=== PATIENT | female | born 1940 | race Caucasian/White ===

== ENCOUNTER 2020-09-21 07:56 | Outpatient (CLI) | payer OTHER, SELFPAY ==
[2020-09-24 13:31] LABS: Patient Race White; SARS-CoV-2 RNA Undetected (Undetected); SARS-CoV-2 Specimen Source Nasal
== END 2020-09-21 08:16 ==
PROVIDERS: PCP Emergency Medicine; Visit Provider Nurse Practitioner Family
DX: Z11.59 Encounter for screening for other viral diseases (principal)
CPT/HCPCS: U0003

== ENCOUNTER 2021-01-31 07:44 | Outpatient (REF) | payer OTHER, SELFPAY ==
[2021-01-31 15:59] LABS: HCT 41.8 % (36.0-46.0); HGB 13.5 g/dL (11.2-15.7); MCH 30.6 pg (27.0-33.0); MCHC 32.3 % (32.0-36.0); MCV 94.8 fL (80-95); MPV 9.9 fL (8.0-11.0); Platelet Count 303 10^3/uL (130-400); RBC 4.41 10^6/uL (3.93-5.22); RDW 12.1 % (11.7-14.6); RDW-SD 42.5 fL; WBC 5.84 10^3/uL (4.4-10.8)
[2021-01-31 16:27] LABS: ALT 29 U/L (14-59); AST 27 U/L (15-37); Albumin 3.8 g/dL (3.4-5.0); Alkaline Phosphatase 73 U/L (46-116); Anion Gap 9.5 mmol/L (3-11); BUN 18 mg/dL (7-18); Bilirubin, Total 0.3 mg/dL (0.2-1.0); CO2 28.5 mmol/L (21.0-32.0); CREATININE 0.8 mg/dL (0.55-1.02); Calcium 9.2 mg/dL (8.5-10.1); Calculated LDL 90 mg/dL (<100); Chloride 104 mmol/L (98-107); Cholesterol 168 mg/dL (<200); Glucose 98 mg/dL (74-106); HDL Cholesterol 59 mg/dL (40-60); Potassium 4.1 mmol/L (3.5-5.1); Sodium 142 mmol/L (136-145); Total Protein 6.9 g/dL (6.4-8.2); Triglyceride 96 mg/dL (<150)
== END 2021-01-31 07:45 | disposition home or self-care (01) ==
LOC: NCHCN 07:44
PROVIDERS: Visit Provider Physician Assistant
DX: E78.5 Hyperlipidemia, unspecified (principal)
CPT/HCPCS: 80053; 80061; 85027

== ENCOUNTER 2021-08-08 18:41 | Outpatient (REF) | payer OTHER, SELFPAY ==
[2021-08-08 19:57] LABS: TSH 1.76 uIU/mL (0.36-3.74)
== END 2021-08-08 18:42 | disposition home or self-care (01) ==
LOC: NCHCN 18:41
PROVIDERS: Referring Provider Physician Assistant; Visit Provider Physician Assistant
DX: R53.83 Other fatigue (principal)
CPT/HCPCS: 84439; 84443

== ENCOUNTER 2022-02-07 14:23 | Emergency (ER) | payer OTHER, SELFPAY ==
[2022-02-07 14:48] VITALS: BP 138/73; PULSE 63; RESP 18; TEMP 37.5; O2SAT 98
[2022-02-07 15:00] VITALS: PULSE 66; RESP 14; TEMP 37.5; O2SAT 99
--- NOTE | 2022-02-07 15:15 | DI.RAD_ITS ---
Exam(s) XR RIBS RT PA CHEST 3V EXAM: XR RIBS RT PA CHEST 3V CLINICAL HISTORY: fall, right rib pain laterally TECHNIQUE: 2D digital imaging was performed. PA chest and three views of right ribs COMPARISON: CR CHEST 2 VIEWS PA,LAT from 05/04/2009 CR CHEST 2 VIEWS PA,LAT from 11/21/2010 FINDINGS: MEDIASTINUM: Normal. HEART: Normal. PULMONARY VASCULATURE: Normal. LUNGS: Biapical scarring, right greater than left, otherwise clear. Mild fibrotic changes. Clear. PLEURAL SPACE: No pleural effusion or pneumothorax. BONE:Normal. RIGHT RIBS: Normal. OTHER FINDINGS:Surgical clips right upper quadrant. IMPRESSION: 1. No acute pulmonary findings. 2. Unremarkable right ribs. DATA REPOSITORY: RADIATION DOSE DELIVERED:
--- NOTE | 2022-02-07 15:15 | DI.RAD_ITS ---
Exam(s) XR ANKLE LT COMPLETE EXAM: XR ANKLE LT COMPLETE CLINICAL HISTORY: fall, ankle pain TECHNIQUE: 2D digital imaging was performed. Three views. COMPARISON: No exams were available for comparison FINDINGS: BONES: No acute fracture is present. No bony destructive lesion is seen. Prominent calcaneal enthesop hytes. Smoothly marginated bony densities adjacent to the medial malleolus. JOINTS:The ankle mortise is normally aligned. No joint space narrowing. SOFT TISSUE: Normal. IMPRESSION: No acute abnormality. DATA REPOSITORY: RADIATION DOSE DELIVERED:
--- NOTE | 2022-02-07 15:15 | DI.CT_ITS ---
Exam(s) CT HEAD WO EXAM: CT HEAD WO CLINICAL HISTORY: fall, right frontotemporal trauma. TECHNIQUE: Imaging Protocol: Axial computed tomography images with coronal and sagittal reformatted images were created and reviewed COMPARISON: No exams were available for comparison FINDINGS: Ventricles and Extra axial spaces: Normal in size and morphology for the patient's age. Hemorrhage: None. Cerebral parenchyma: Normal. Midline shift: None. Brainstem/Cerebellum: Normal. Calvarium: Benign appearing bony excrescence from the Arpit inner table of the skull in the left post erior parietal region. Visualized Paranasal sinuses/Mastoids: Clear. Soft Tissues: Mild swelling right frontal scalp. IMPRESSION: No acute intracranial process. Findings called to emergency department. RADIATION DOSE DELIVERED: 710.05mGy.cm Total DLP DATA REPOSITORY: All CT scans at this facility are submitted to the National Radiology Data Registry (NRDR) Dose Index Registry (DIR) with the [employer] ([employer]). RADIATION OPTIMIZATION: All CT scans at this facility use at least one of these dose optimization te chniques: automated exposure control; mA and/or kV adjustment per patient size (includes targeted exa ms where dose is matched to clinical indication); or iterative reconstruction.
--- NOTE | 2022-02-07 16:41 | W.ED.GENAD ---
Discharge Plan Disposition Patient Disposition: HOME Condition: Improving Discharge Details Clinical Impression: Contusion, Fall Primary Care Provider: Javon Vu ED Provider: Morgan [place] Home Meds and New Rx's Prescriptions: Continued citalopram [Celexa] 20 MG tablet 30 mg PO DAILY Qty: 135 4RF ibuprofen 800 MG tablet 800 mg PO TID PRNQty: 90 0RF pravastatin 40 MG tablet 20 mg PO DAILY Qty: 90 3RF gabapentin 100 mg capsule 100 mg PO QHS 0RF Label Comments: TAKE ONE CAPSULE BY MOUTH AT BEDTIME (INCREASED DROWSINESS WTIH CITALOPRAM) cholecalciferol (vitamin D3) [Vitamin D3] 25 mcg (1,000 unit) Tablet 1,000 unit PO DAILY 0RF folic acid 15 mg Tablet 10 mg PO DAILY 0RF Discharge Instructions Instructions: Contusion in Adults (ED) Additional Instructions: Continue with ibuprofen, acetaminophen ice and rest as needed. Please return to the emergency part he develop any change in behavior nausea vomiting weakness numbness or trouble breathing. Medical Decision Making 81-year-old female presents for mechanical fall tripped on a dog toy, left ankle pain right chest wall pain right frontotemporal scalp ecchymosis and mild hematoma, neurologically intact moving all extremities no anticoagulant or antiplatelet use, no cervical spine tenderness, chest wall discomfort with palpation without ecchymosis or evidence of flail chest. Likely chest wall contusion versus rib fracture versus unlikely pneumothorax, low suspicion for skull fracture or intracranial hemorrhage however given age and mechanism as well as frontotemporal ecchymosis will obtain CT head, ankle pain with full range of motion neurovascular exam intact warm well perfused. Likely ankle sprain low suspicion for dislocation or fracture. X-ray CT head, analgesia close reassessment likely home with follow-up Resting comfortably no acute distress. Imaging unremarkable. Patient feels comfortable going home. HPI General Date/Time Provider Initiated Documentation: 02/07/22 14:58. HPI Narrative: 81-year-old female presents after mechanical fall, tripped over a dog toy, fell onto her right side, hitting her right chest wall right side of her head and straining her left ankle. No loss of conscious. Denies blood thinner aspirin use. Behaving normally per family member at bedside. Denies trouble breathing however does have pain in her right side when moving. Related Data Home Medications Medication Instructions Recorded Confirmed citalopram 20 mg tablet (Celexa) 30 mg PO DAILY #135 tab-cap 10/06/14 02/07/22 ibuprofen 800 mg tablet 800 mg PO TID PRN #90 tab-cap 05/04/15 02/07/22 pravastatin 40 mg tablet 20 mg PO DAILY #90 tab-cap 05/02/16 02/07/22 cholecalciferol (vitamin D3) 25 1,000 unit PO DAILY 02/07/22 02/07/22 mcg (1,000 unit) tablet (Vitamin D3) folic acid 15 mg tablet 10 mg PO DAILY 02/07/22 02/07/22 gabapentin 100 mg capsule 100 mg PO QHS 02/07/22 02/07/22 Allergies Allergy/AdvReac Type Severity Reaction Status Date / Time polymyxin B Allergy Unknown Unverified 02/07/22 17:32 bacitracin AdvReac Unknown Unverified 02/07/22 17:32 General Stated Complaint: Trauma CHRISTIAN: 3 Review of Systems Narrative: Review of Systems Constitutional: negative Eyes: negative ENT: negative Cardiovascular: negative Respiratory: negative Gastrointestinal: negative : negative Musculoskeletal: Chest wall pain, ankle pain Skin: negative Neurologic: Head injury Psych: negative PFSH All Active Problems (Updated 02/07/22 @ 17:52 by Morgan Bay MD) Contusion (Acute) Fall (Acute) Encounter for screening for other viral diseases (Acute) Surgical History (Updated 09/04/18 @ 14:34 by [place]) Abdominal hysterectomy cervical dyspalsia Cholecystectomy (~2001) Colonoscopy - [facility] [place] 2006 Family History Mother Epilepsy Father Essential hypertension Heart disease Hyperlipidemia Myocardial infarction Sister Hyperlipidemia Brother Personal history of malignant neoplasm Grandmother No problems noted. Social History Smoking/Tobacco Use Status: Former Tobacco Use Smoking risk assessment performed?: Yes Alcohol Intake: current Alcohol Intake frequency: holidays/special occasions only Drug use: Never Do you feel safe at home: Yes Do you feel safe in your relationship?: Yes Exam Narrative Exam Narrative: Physical Examination General: alert, awake, cooperative, resting comfortably, no acute distress HEENT: normocephalic, contusion/ecchymosis to right frontotemporal scalp PERRL, EOM intact, conjunctiva normal; no nasal discharge; moist mucous membranes, oral and pharyngeal mucosa normal, tolerating secretions Neck: supple, trachea midline; full ROM Chest: normal to inspection, tender to palpation under right breast without crepitus or deformity, normal excursion, no ecchymosis Respiratory: normal respiratory effort, speaking in full sentences, clear to auscultation, no wheezing, rales or rhonchi Cardiac: regular rate, regular rhythm, S1S2 intact, no murmurs rubs or gallops GI: abdomen soft, non-tender, non-distended; no palpable mass or hepatosplenomegaly Skin: no lesions, rashes or trauma appreciated Neuro: AAOx3, normal speech, moving all extremities, 5-5 strength upper and lower extremities, cranial nerves intact, no evidence of ataxia Extremities: Moving all extremities, some tenderness to left ankle without crepitus or deformity, sensation intact warm well perfused limb Psych: Appropriate mood and affect Course Vital Signs Vital signs: Vital Signs Temperature 37.5 C 02/07/22 14:48 Pulse 63 02/07/22 14:48 Respiratory Rate 18 02/07/22 14:48 Blood Pressure 138/73 02/07/22 14:48 Pulse Oximetry 98 02/07/22 14:48 Temperature 37.5 C 02/07/22 15:00 Temperature Source Temporal Artery Scan 02/07/22 15:00 Pulse 66 02/07/22 15:00 Respiratory Rate 14 02/07/22 15:00 Respiratory Effort Non-Labored 02/07/22 15:07 Respiratory Depth Normal 02/07/22 15:07 Respiratory Pattern Normal 02/07/22 15:07 Blood Pressure 138/73 02/07/22 14:48 Blood Pressure Position Sitting 02/07/22 15:00 Pulse Oximetry 99 02/07/22 15:00 Oxygen Delivery Method Room Air 02/07/22 15:00 Oxygen Flow Rate 0 02/07/22 15:00 Pain Level 9 02/07/22 15:00 Comment 02/07/22 15:00
[2022-02-07] MEDS: Ketorolac 15 MG/ML VIAL IM (17:33)
[2022-02-07 18:07] VITALS: BP 132/70; PULSE 60; RESP 12; TEMP 37.5; O2SAT 99
--- NOTE | 2022-02-07 18:09 | NUR.NOTE ---
Patient was given an Incentive spirometer and education in its use. HARRY
== END 2022-02-07 18:04 | disposition home or self-care (01) ==
PROVIDERS: Emergency Provider Emergency Medicine; PCP Physician Assistant
DX: S20.211A Contusion of right front wall of thorax, initial encounter (principal); S00.03XA Contusion of scalp, initial encounter; M25.572 Pain in left ankle and joints of left foot; W01.0XXA Fall on same level from slipping, tripping and stumbling without subsequent striking against object, initial encounter
CPT/HCPCS: 96372; 99284; 70450; 71046; 71100; 73610; 99283; J1885

== ENCOUNTER → 2022-02-09 14:22 | Outpatient (CLI) | payer OTHER, SELFPAY ==
--- NOTE | 2022-02-09 | DI.RAD_ITS ---
Exam(s) XR HUMERUS RT XR SHOULDER RT COMPLETE 2+V EXAM: XR HUMERUS RT and XR shoulder RT complete two view CLINICAL HISTORY: RT UPPER ARM PAIN, H/O FALL, M79.621,?FX. TECHNIQUE: 2D digital imaging was performed of the right humerus. Seven images were obtained. Mult iple views were obtained. COMPARISON: CR XR RIBS RT PA CHEST 3V from 02/07/2022 FINDINGS: BONES: No acute fracture is present. No bony destructive lesion is seen. Degenerative changes are see n at the shoulder. The bones appear osteopenic. SOFT TISSUE: Normal. IMPRESSION: No acute fracture or dislocation. DATA REPOSITORY: RADIATION DOSE DELIVERED:
== END ==
PROVIDERS: PCP Physician Assistant; Visit Provider Physician Assistant Medical
DX: M79.621 Pain in right upper arm (principal); M25.511 Pain in right shoulder
CPT/HCPCS: 73030; 73060

== ENCOUNTER 2022-12-10 11:39 | Emergency (ER) | payer MEDICARE, SELFPAY ==
[2022-12-10 11:44] VITALS: BP 125/78; RESP 18; TEMP 36.7; O2SAT 96
--- NOTE | 2022-12-10 12:00 | DI.RAD_ITS ---
Exam(s) XR KNEE RT 3V AP,LAT,MALINI EXAM: XR KNEE RT 3V AP,LAT,MALINI CLINICAL HISTORY: pain, atraumatic, lateral. TECHNIQUE: 2D digital imaging was performed. COMPARISON: No exams were available for comparison FINDINGS: Four views: No evidence of acute fracture although there does appear to be a small joint effusion. There is significant degenerative narrowing of the medial compartment. Lateral compartment appears u nremarkable. There are posteriorly located calcified loose bodies. Possibly within Rock cyst. Anteriorly there is in element of quadriceps enthesopathy. IMPRESSION: No fractures. Degenerative changes. Loose bodies in the posterior joint. DATA REPOSITORY: RADIATION DOSE DELIVERED:
[2022-12-10] MEDS: Acetaminophen 325 MG TAB 650 MG PO (12:26)
--- NOTE | 2022-12-10 13:03 | DI.VRAD_ITS ---
PROCEDURE INFORMATION: Exam: XR Right Knee Exam date and time: 12/10/2022 12:38 PM Age: 82 years old Clinical indication: Difficulty in walking and limp and other: Pain, atraumatic, lateral TECHNIQUE: Imaging protocol: Radiologic exam of the Right knee. Views: 3 views. COMPARISON: No relevant prior studies available. FINDINGS: Bones/joints: No acute fracture or dislocation. Medial compartment osteophytosis with joint space narrowing. Small joint effusion. Soft tissues: Quadriceps enthesopathy. Suprapatellar swelling. Calcified densities over the posterior joint space may be within a Rock's cyst or loose bodies. IMPRESSION: 1. No acute findings. 2. Moderate medial compartment predominant osteoarthritis. Dictated and Authenticated by: Tomas Rojas MD. Ordering:PARVEZ Erwin MD
--- NOTE | 2022-12-10 13:23 | ED.GENADUL_ITS ---
Discharge Plan Disposition Patient Disposition: Home Condition: Stable Discharge Details Clinical Impression: Acute knee pain Primary Care Provider: Javon Vu ED Provider: Yaima Esposito Home Meds and New Rx's Prescriptions: Continued rosuvastatin 5 mg tablet 5 mg PO DAILY cholecalciferol (vitamin D3) [Vitamin D3] 25 mcg (1,000 unit) Tablet 1,000 unit PO DAILY escitalopram oxalate 10 mg tablet 1 tab PO DAILY Label Comments: TAKE ONE TABLET BY MOUTH EVERY DAY naproxen sodium [Aleve] 220 mg Tablet 220 mg PO Q12H PRN PRN Discharge Instructions Instructions: Knee Pain (ED) Additional Instructions: Please follow-up with orthopedics Take your medication ibuprofen and Tylenol Apply Voltaren gel Recommend cane and return with redness, swelling, fever, or should he have new or worsening complaints Referrals: Javon Vu [Primary Care Provider] - Arnaldo Walker MD [ [facility] STAFF PHYSICIAN] - Discharge Data Discharge Date/Time-TO BE ENTERED AT DEPARTURE: 12/10/22 14:39 Medical Decision Making This 82-year-old female presents with left knee pain ongoing for the past several weeks without any evidence of secondary infection X-ray shows evidence of arthritis per radiology interpretation my review Placed in a hinged knee brace, mild effusion suspected Will refer to orthopedics for further assessment and intervention Recommend cane use for home Will apply Voltaren gel Return precautions reviewed and patient expressed understanding, discharged home with steady antalgic gait Medical Records Medical records reviewed: Yes I reviewed the patient's medical records. HPI General Date/Time Provider Initiated Documentation: 12/10/22 12:12 . HPI Narrative: This 82-year-old female presents with right knee pain for the past week which became dramatically worse this week. She denies any injuries or strength or sensation change. States the pain is exacerbated with walking predominantly. Describes the pain as sharp. Denies fever or chills. Related Data Home Medications Medication Instructions Recorded Confirmed cholecalciferol (vitamin D3) 25 1,000 unit PO DAILY 02/07/22 12/10/22 mcg (1,000 unit) tablet (Vitamin D3) rosuvastatin 5 mg tablet 5 mg PO DAILY 04/24/22 12/10/22 escitalopram oxalate 10 mg tablet 1 tab PO DAILY 12/10/22 12/10/22 naproxen sodium 220 mg tablet 220 mg PO Q12H PRN PRN 12/10/22 12/10/22 (Aleve) Allergies Allergy/AdvReac Type Severity Reaction Status Date / Time polymyxin B Allergy Unknown Unverified 12/10/22 11:46 bacitracin AdvReac Unknown Unverified 12/10/22 11:46 General Stated Complaint: Orthopedic CHRISTIAN: 4 PFSH All Active Problems (Updated 12/10/22 @ 14:26 by SAMMY Motta) Acute knee pain (Acute) Sleep apnea (Acute 09/04/14) CPAP Encounter for screening for other viral diseases (Acute) Medical History (Updated 12/10/22 @ 14:26 by SAMMY Motta) Cystocele, midline Diverticulosis of colon without diverticulitis History of tobacco use Hyperlipidemia Polyp of colon TUBULAR ADENOMA Surgical History (Updated 04/24/22 @ 15:38 by Gavin Lowery RN) Abdominal hysterectomy cervical dyspalsia Cholecystectomy (~2001) [place] - [facility] [place] Status post abdominal hysterectomy Status post cholecystectomy Family History Mother Epilepsy Father Essential hypertension Heart disease Hyperlipidemia Myocardial infarction Sister Hyperlipidemia Brother Personal history of malignant neoplasm Grandmother No problems noted. Social History Smoking/Tobacco Use Status: Former Tobacco Use Smoking risk assessment performed?: Yes Alcohol Intake: current Alcohol Intake frequency: holidays/special occasions only Alcohol type: hard liquor Drug use: Never Substance use type: does not use Do you feel safe at home: Yes Do you feel safe in your relationship?: Yes Exam Const General: cooperative and comfortable Extrem Other: Right knee no tenderness, no erythema, no calf or popliteal tenderness, lateral collateral ligament No significant swelling Neurovascularly intact Course Vital Signs Vital signs: Vital Signs Temperature 36.7 C 12/10/22 11:44 Respiratory Rate 18 12/10/22 11:44 Blood Pressure 125/78 12/10/22 11:44 Pulse Oximetry 96 12/10/22 11:44 Temperature 36.7 C 12/10/22 11:44 Temperature Source Temporal Artery Scan 12/10/22 11:44 Respiratory Rate 18 12/10/22 11:44 Respiratory Effort Non-Labored 12/10/22 12:00 Blood Pressure 125/78 12/10/22 11:44 Pulse Oximetry 96 12/10/22 11:44 Oxygen Delivery Method Room Air 12/10/22 11:44 Oxygen Flow Rate 0 12/10/22 11:44 Pain Level 9 12/10/22 12:00 PAWSS Have you Been Recently Intoxicated or Drunk Within the Last 30 days?: No Have you Ever Experienced Previous Episodes of Alcohol Withdrawal?: No Have you ever Experienced Withdrawal Seizures?: No Have you ever Experienced Delirium Tremens(DT)s?: No Have you ever undergone Alcohol Rehabilitation Treatment (i.e, inpt ot outpatient treatment programs)?: No Have you ever Experienced Blackouts?: No Have you ever Combined Alcohol with other Downers within the last 90 days?: No Have you ever Combined Alcohol with any other Substance of Abuse during the last 90 days?: No Positive Blood Alcohol level on Presentation? [PCS.BAL]: No Evidence of Increased Autonomic Activity (i.e. HR>120, tremor, sweating, agitation, nausea)?: No Result: 0
[2022-12-10 14:39] VITALS: BP 147/83; PULSE 64; RESP 18; O2SAT 97
== END 2022-12-10 14:39 | disposition home or self-care (01) ==
PROVIDERS: Emergency Provider Physician Assistant; PCP Physician Assistant
DX: M25.562 Pain in left knee (principal)
CPT/HCPCS: 73562; 99283; 99282

== ENCOUNTER → 2023-01-01 13:46 | Outpatient (BNVA) | payer MEDICARE, SELFPAY | PROVIDERS: PCP Physician Assistant; Referring Provider Student in an Organized Health Care Education/Training Program | DX: M17.11 Unilateral primary osteoarthritis, right knee (principal) | CPT/HCPCS: 20610; 99213; J1040 ==

== ENCOUNTER 2023-04-13 16:11 | Outpatient (REF) | payer MEDICARE, SELFPAY ==
[2023-04-13 16:27] LABS: Anion Gap 4.4 mmol/L (3-11); BUN 22 mg/dL (7-18); CO2 29.6 mmol/L (21.0-32.0); CREATININE 0.8 mg/dL (0.55-1.02); Calcium 9.2 mg/dL (8.5-10.1); Calculated LDL 106 mg/dL (<100); Chloride 104 mmol/L (98-107); Cholesterol 176 mg/dL (<200); Estimated GFR 73.06 (mL/min/1.73m2); Glucose 101 mg/dL (74-106); HDL Cholesterol 53 mg/dL (40-60); Potassium 4.1 mmol/L (3.5-5.1); Sodium 138 mmol/L (136-145); Triglyceride 88 mg/dL (<150)
== END 2023-04-13 16:12 | disposition home or self-care (01) ==
LOC: NCHCN 16:11
PROVIDERS: PCP Physician Assistant; Visit Provider Physician Assistant
DX: E78.5 Hyperlipidemia, unspecified (principal)
CPT/HCPCS: 80048; 80061

== ENCOUNTER 2023-05-28 14:54 | Outpatient (CLI) | payer MEDICARE, SELFPAY ==
[2023-05-28 14:10] LABS: Ferritin 80 ng/mL (8-252); TSH (W/Ref FT4) 1.81 uIU/mL (0.36-3.74)
== END 2023-05-28 14:55 | disposition home or self-care (01) ==
LOC: LBO 14:54
PROVIDERS: PCP Physician Assistant; Visit Provider Nurse Practitioner
DX: M25.50 Pain in unspecified joint (principal); F32.A Depression, unspecified
CPT/HCPCS: 36415; 82728; 84443

== ENCOUNTER → 2023-07-09 10:49 | Outpatient (BNVA) | payer MEDICARE, SELFPAY | PROVIDERS: PCP Physician Assistant; Referring Provider Physician Assistant; Visit Provider Nurse Practitioner Gerontology | DX: R32 Unspecified urinary incontinence (principal) | CPT/HCPCS: 51798; 81003; 99215 ==

== ENCOUNTER → 2023-08-08 14:28 | Outpatient (BNVA) | payer MEDICARE, SELFPAY | PROVIDERS: PCP Physician Assistant; Referring Provider Physician Assistant; Visit Provider Nurse Practitioner Gerontology | DX: R32 Unspecified urinary incontinence (principal) | CPT/HCPCS: 51798; 99213 ==

== ENCOUNTER 2023-10-05 11:09 | Outpatient (CLI) | payer MEDICARE, SELFPAY ==
--- NOTE | 2023-10-05 10:30 | DI.RAD_ITS ---
Exam(s) XR STANDING ALIGNMENT XR KNEE RT 1V EXAM: XR STANDING ALIGNMENT and XR knee RT 1 V CLINICAL HISTORY: OA RIGHT KNEE. TECHNIQUE: 2D digital imaging was performed. Five images were obtained. COMPARISON: CR,XR XR KNEE RT 3V AP,LAT,MALINI from 12/10/2022 FINDINGS: BONES: The hips are well maintained. There are degenerative changes seen in the right knee with willy ed narrowing of the medial femoral tibial joint. Osteophytes are seen of the posterior patella and t he medial femoral tibial joint. There is a small joint effusion in the right knee. There is an enth esophyte at the anterior superior right patella. There are densities seen posterior to the knee whic h may be loose bodies. There is mild narrowing of the medial joint space of the left knee.There is n o significant leg length discrepancy. SOFT TISSUE: Normal. IMPRESSION: Osteoarthritis of the right knee with small right joint effusion. DATA REPOSITORY: RADIATION DOSE DELIVERED:
== END 2023-10-05 11:10 | disposition home or self-care (01) ==
LOC: DIORS 11:09
PROVIDERS: PCP Physician Assistant; Referring Provider Physician Assistant; Visit Provider Physician Assistant
DX: M17.11 Unilateral primary osteoarthritis, right knee (principal)
CPT/HCPCS: 99213; 73560; 77073

== ENCOUNTER 2023-11-02 02:51 | Outpatient (CLI) | payer MEDICARE, SELFPAY ==
[2023-11-02 12:17] LABS: HCT 39.6 % (36.0-46.0); HGB 12.8 g/dL (11.2-15.7); MCH 30.3 pg (27.0-33.0); MCHC 32.3 % (32.0-36.0); MCV 94 fL (80-95); MPV 9.5 fL (8.0-11.0); Platelet Count 283 10^3/uL (130-400); RBC 4.23 10^6/uL (3.93-5.22); RDW 12.7 % (11.7-14.6); RDW-SD 43.9 fL
[2023-11-02 13:29] LABS: Anion Gap 7.7 mmol/L (3-11); BUN 21 mg/dL (7-18); CO2 28.3 mmol/L (21.0-32.0); CREATININE 0.9 mg/dL (0.55-1.02); Calcium 9.5 mg/dL (8.5-10.1); Chloride 103 mmol/L (98-107); Estimated GFR 63.43 (mL/min/1.73m2); Glucose 94 mg/dL (74-106); Potassium 3.8 mmol/L (3.5-5.1); Sodium 139 mmol/L (136-145)
== END 2023-11-02 02:52 | disposition home or self-care (01) ==
LOC: LBO 02:51
PROVIDERS: PCP Physician Assistant; Visit Provider Student in an Organized Health Care Education/Training Program
DX: M17.11 Unilateral primary osteoarthritis, right knee (principal); Z01.818 Encounter for other preprocedural examination
CPT/HCPCS: 36415; 80048; 85027

== ENCOUNTER 2023-11-16 08:12 | Day surgery (SDC) | payer MEDICARE, SELFPAY ==
[2023-11-16] VITALS (13 sets, daily range): BP systolic 100–153; BP diastolic 37–63; PULSE 59–73; RESP 10–22; TEMP 36.4–37; O2SAT 96–100; BMI 26.6
--- NOTE | 2023-11-16 08:50 | DSE_ITS ---
Date of service: 11/16/23 Time of Service: 08:54 Discharge Plan Disposition Patient Disposition: Home Condition: Good Discharge Details Reason For Visit: Right knee DJD Attending Provider: Arnaldo Walker Primary Care Provider: Javon Vu Home Meds and New Rx's Prescriptions: New acetaminophen 500 mg tablet 1,000 mg PO Q8H PRN Qty: 90 0RF Rx Instructions: Take two tablets up to every 8 hours as needed for pain aspirin 81 mg tablet,delayed release (DR/EC) 81 mg PO BID 30 Days Qty: 60 0RF celecoxib [Celebrex] 200 mg capsule 200 mg PO BID PRNQty: 60 0RF Rx Instructions: Take one tablet twice daily for pain and inflammation docusate sodium [Colace] 100 mg capsule 100 mg PO BID Qty: 30 0RF pantoprazole 40 mg tablet,delayed release (DR/EC) 40 mg PO DAILY Qty: 14 0RF dexamethasone 4 mg tablet 4 mg PO DAILY Qty: 2 0RF Rx Instructions: Take one tablet once daily for two days gabapentin 300 mg capsule 300 mg PO QHS Qty: 14 0RF Rx Instructions: Take one tablet at bedtime oxycodone 5 mg tablet 5 mg PO Q4H PRNQty: 18 0RF Rx Instructions: Take one tablet up to every 4 hours as needed for severe postoperative pain Continued rosuvastatin 5 mg tablet 5 mg PO DAILY cholecalciferol (vitamin D3) [Vitamin D3] 25 mcg (1,000 unit) Tablet 1,000 unit PO DAILY escitalopram oxalate 10 mg tablet 1 tab PO DAILY Patient Comments: TAKE ONE TABLET BY MOUTH EVERY DAY Discontinued ibuprofen [Advil] 200 mg tablet 200 mg PO ONCE Discharge Instructions Additional Instructions: Total Knee Discharge Instructions Activity: The most important activity is to walk and to work on gentle motion (both flexion and extension). You should try to take short walks a few times a day. It is important that when resting you work on keeping the knee straight. Avoid putting a pillow behind the knee as this will encourage flexion. Work on range of motion exercises as provided by Physical Therapy. - Start outpatient physical therapy within 2 weeks. - You should wear the TOM hose on both legs for 2 weeks. You may remove these at night. You may also use any compression sock in place of the TOM hose. - Utilize [employer] to review exercises, see videos on exercises and obtain basic information pertaining to your surgery and your recovery. Dressing: Remove the Tyrell wrap by 2 days after your surgery and put on the TOM stocking given to you from the hospital. Keep the surgical dressing (underneath the TYRELL wrap) in place for at least one week. After the first week it may be removed and replaced with light gauze and tape or nothing. The wound and dressing may get wet after 3 days but avoid soaking the dressing or otherwise it will need to be changed. Many people prefer covering the dressing with cling wrap (saran wrap) to minimize it from getting soaked. If it gets wet, just pat dry. If it starts to peel off then it will need to be changed. Medications: - You should take Tylenol and anti-inflammatory Celebrex as your primary pain control medications. If the Celebrex is too expensive or not covered, please call the office for another alternative (Advil/Ibuprofen or Naproxen/Aleve) - You have been prescribed a stronger pain medication Oxycodone for breakthrough pain, take as needed as prescribed. - You have also been prescribed a stomach acid reduction agent Pantoprozole to help reduce stomach acid and reflux. - You have been prescribed Gabapentin to take at night for restlessness and nerve pain. - You will be taking Aspirin 81mg twice a day for DVT prevention unless instructed otherwise. - You have also been prescribed Decadron to take to control post-operative nausea and pain. You will start this tomorrow. - If you have constipation you should take Colace (which has been prescribed) or Miralax (which is available [id number]). It takes most people 3-4 days to have a bowel movement. Follow-up: 2 weeks If you have any acute concerns or questions, please do not hesitate to contact the office at [phone]. You may contact Dr. Walker with any questions after hours through the hospital at [phone] or on his cell phone at [phone]. Stand Alone Forms: Anesthesia Discharge Inst., Renate.Nerve Block Instructions, Gricelda Cross (U) Referrals: Arnaldo Walker MD [ [facility] STAFF PHYSICIAN] - 11/30/23 10:45 am Equipment/Supplies: Walker Activity:: Elevate Remove Dressings/Wound Care:: Do Not Remove Shower/Bathe:: 72 hours and Cover Diet:: As Tolerated Discharge Orders Discharge Orders: Discharge Order (Routine); Ordered 11/16/23 Ordered By: Honey Bill DS: Summary Time Spent with Patient providing and/or coordinating discharge services: Less than 30 minutes Status at Discharge Functional status at discharge: uses cane/walker Overall status at discharge: patient is progressing back to baseline Mental Status: mental status grossly normal Speech and Movement: speech and movement normal Mood: congruent mood Affect: normal affect Exam Psych Mental Status: mental status grossly normal Speech and Movement: speech and movement normal Mood: congruent mood Affect: normal affect DS: Data Vitals/I&O Vitals and I&O: Intake & Output 11/15/23 11/15/23 11/16/23 11:59 23:59 11:59 Weight 145 lb 15.983 oz PFSH All Active Problems KATEY (obstructive sleep apnea) (Chronic) BiPAP Depression (Chronic) Anxiety (Chronic) Arthritis (Acute) Restless legs (Acute) Rhinitis (Acute) Chronic cough (Acute) Shoulder joint pain (Acute) Osteoarthritis (Chronic) Urinary incontinence (Acute) Localized osteoarthritis of right knee (Chronic) DEPO MEDROL 01/01/23 Encounter for screening for other viral diseases (Acute) Medical History Polyp of colon TUBULAR ADENOMA Hyperlipidemia History of tobacco use stopped over 30 years ago Diverticulosis of colon without diverticulitis Cystocele, midline Surgical History Status post dilation and curettage Cyst of kidney, acquired Right kidney cyst excision Ruptured lumbar disc ~1989 Abdominal hysterectomy cervical dyspalsia Colonoscopy - [facility] – [place] Cholecystectomy (~2001) Family History Mother Epilepsy Father Essential hypertension Heart disease Hyperlipidemia Myocardial infarction Sister Hyperlipidemia Brother Personal history of malignant neoplasm Grandmother No problems noted. Social History Smoking/Tobacco Use Status: Former Tobacco Use Quit Date: 11/19/85 Smoking risk assessment performed?: Yes Alcohol Intake: current Alcohol Intake frequency: holidays/special occasions only Alcohol type: hard liquor Drug use: Never Substance use type: does not use Details: alcohol: weeks Housing: apartment Do you feel safe at home: Yes Additional Social history: lives alone Time Spent with Patient Time Spent with Patient: <45 minutes Time was spent: preparing to see the patient(eg.review tests), ordering medications,tests, procedures and counseling the patient
[2023-11-16] MEDS: Acetaminophen 500 MG TAB 1000 MG PO (09:10)
[2023-11-16] MEDS: Gabapentin 300 MG CAP PO (09:11)
[2023-11-16] MEDS: Celecoxib 200 MG CAP 400 MG PO (09:11)
--- NOTE | 2023-11-16 09:11 | ANES.PREOP_ITS ---
General Info Date of Service Date Performed: 11/16/23 Height: 5 ft 2 in Weight: 66 kg Body Mass Index (BMI): 26.6 Surgical Procedure: Operation Date: 11/16/23 10:10 Proposed Procedure Side Surgeon p Knee Total Arthroplasty, Cemented CR Right Arnaldo Walker MD Meds Allergies and Home Medications Allergies Allergy/AdvReac Type Severity Reaction Status Date / Time polymyxin B Allergy Unknown Unverified 11/16/23 08:48 bacitracin AdvReac Unknown Unverified 11/16/23 08:48 Home Medication Medication Instructions Recorded cholecalciferol (vitamin D3) 25 1,000 unit PO DAILY 02/07/22 mcg (1,000 unit) tablet (Vitamin D3) rosuvastatin 5 mg tablet 5 mg PO DAILY 04/24/22 escitalopram oxalate 10 mg tablet 1 tab PO DAILY 12/10/22 acetaminophen 500 mg tablet 1,000 mg (2 x 500 mg) PO Q8H PRN 11/16/23 pain #90 tabs aspirin 81 mg tablet,delayed 81 mg PO BID 30 days #60 tabs 11/16/23 release celecoxib 200 mg capsule (Celebrex) 200 mg PO BID PRN #60 caps 11/16/23 dexamethasone 4 mg tablet 4 mg PO DAILY #2 tabs 11/16/23 docusate sodium 100 mg capsule 100 mg PO BID #30 caps 11/16/23 (Colace) gabapentin 300 mg capsule 300 mg PO QHS #14 caps 11/16/23 oxycodone 5 mg tablet 5 mg PO Q4H PRN #18 tabs 11/16/23 pantoprazole 40 mg tablet,delayed 40 mg PO DAILY #14 tabs 11/16/23 release Current Visit Medications: Current Medications Generic Name Dose Route Start Last Admin Trade Name Freq PRN Reason Stop Dose Admin Acetaminophen 1,000 mg 11/16/23 06:00 Acetaminophen 500 Mg Tab PO 12/16/23 05:59 PREOP JAQUAN Celecoxib 400 mg 11/16/23 06:00 Celecoxib 200 Mg Cap PO 12/16/23 05:59 PREOP JAQUAN Gabapentin 300 mg 11/16/23 06:00 Gabapentin 300 Mg Cap PO 12/16/23 05:59 PREOP JAQUAN Hydromorphone HCl 0.5 mg 11/16/23 08:49 Hydromorphone 2 Mg/Ml Syr IVP 12/16/23 08:48 Q2H PRN PRN Tranexamic Acid 1,000 mg/ 60 mls @ 360 mls/hr 11/16/23 06:00 Sodium Chloride IVPB 12/16/23 05:59 PREOP JAQUAN Ringer's Solution 1,000 mls @ 80 mls/hr 11/16/23 06:00 IV 11/16/23 23:59 INFUSION JAQUAN Cefazolin Sodium/Dextrose 2 gm in 50 mls @ 100 mls/hr 11/16/23 06:00 Ancef Duplex IVPB 11/16/23 23:59 PREOP JAQUAN Cefazolin Sodium/Dextrose 1 gm in 50 mls @ 100 mls/hr 11/16/23 10:00 Ancef Duplex IVPB 11/17/23 02:29 Q8H JAQUAN IV Miscellaneous Supplies 1 each 11/16/23 06:00 Iv Access IV 11/16/23 23:59 DIRECTED JAQUAN Oxycodone HCl 0 mg 11/16/23 08:49 Oxycodone 5 Mg Tab PO 12/16/23 08:48 Q3H PRN PRN Pain Sodium Chloride 0 ml 11/16/23 06:00 Normal Saline Flush 10 Ml Syr IV 11/16/23 23:59 PRN PRN Sodium Chloride 0 ml 11/16/23 06:00 Normal Saline 10 Ml Vial IJ 11/16/23 23:59 DIRECTED PRN Sterile Water 0 ml 11/16/23 06:00 Water,Injection,Sterile 10 Ml Vial IJ 11/16/23 23:59 DIRECTED PRN PFSH Active Problems Active Problems: Problem Status Onset Code KATEY (obstructive sleep apnea) G47.33 Depression F32.A Anxiety F41.9 Arthritis M19.90 Restless legs G25.81 Rhinitis J31.0 Chronic cough R05.3 Shoulder joint pain M25.519 Osteoarthritis M19.90 Urinary incontinence R32 Localized osteoarthritis of right knee M17.11 Encounter for screening for other viral diseases Z11.59 Medical History Medical History Polyp of colon TUBULAR ADENOMA Hyperlipidemia History of tobacco use stopped over 30 years ago Diverticulosis of colon without diverticulitis Cystocele, midline Medical History Comments:: pt.states when she had her hysterectomy it took awhile to wake up Surgical History Surgical History Status post dilation and curettage Cyst of kidney, acquired Right kidney cyst excision Ruptured lumbar disc ~1989 Abdominal hysterectomy cervical dyspalsia Colonoscopy - [facility] 2007 Cholecystectomy (~2001) Tobacco Smoking/Tobacco Use Status: Former Tobacco Use Alcohol Alcohol Intake: current Alcohol intake frequency: holidays/special occasions only Alcohol type: hard liquor Substance Use Substance use: Never Substance use type: does not use Details: alcohol: weeks Vital Signs and Lab Results Vital Signs Most Recent Vital Signs in EMR: Most Recent Vital Signs Temp Pulse Resp BP Pulse Ox 37.0 C 69 18 115/56 L 96 11/16/23 09:01 11/16/23 09:01 11/16/23 09:01 11/16/23 09:01 11/16/23 09:01 Lab Results Blood Type / Crossmatch: No Data to Display Complete Blood Count: White Blood Count 7.20 10^3/uL (4.4-10.8) 11/02/23 12:07 Red Blood Count 4.23 10^6/uL (3.93-5.22) 11/02/23 12:07 Hemoglobin 12.8 g/dL (11.2-15.7) 11/02/23 12:07 Hematocrit 39.6 % (36.0-46.0) 11/02/23 12:07 Platelet Count 283 10^3/uL (130-400) 11/02/23 12:07 Complete Metabolic Panel: Sodium 139 mmol/L (136-145) 11/02/23 12:07 Potassium 3.8 mmol/L (3.5-5.1) 11/02/23 12:07 Chloride 103 mmol/L (98-107) 11/02/23 12:07 Carbon Dioxide 28.3 mmol/L (21.0-32.0) 11/02/23 12:07 BUN 21 mg/dL (7-18) H 11/02/23 12:07 Creatinine 0.9 mg/dL (0.55-1.02) 11/02/23 12:07 Est GFR (CKD-EPI 2020) 63.43 (mL/min/1.73m2) 11/02/23 12:07 Calcium 9.5 mg/dL (8.5-10.1) 11/02/23 12:07 Glucose 94 mg/dL (74-106) 11/02/23 12:07 Liver Function Panel: No Data to Display Coagulation Panel: 2 No Data to Display Cardiac Panel: No Data to Display Arterial Blood Gas: No Data to Display Venous Blood Gas: No Data to Display Pancreas Panel: No Data to Display Thyroid Panel: No Data to Display Infectious Disease: No Data to Display Blood Cultures: No Data to Display Toxicology Panel: No Data to Display Anesthesia Assessment and Plan Anesthesia History Personal History: No History of Anesthesia Complications Family History: No Family History of Anesthesia Complications Exercise Tolerance Exercise Tolerance: Metabolic Equivalents>4 Pertinent Negatives Pertinent Negatives: No Symptoms of GERD, No Major Cardiovascular Symptoms or Complaints and No Major Pulmonary Symptoms or Complaints Cardiac & Pulmonary Exam Cardiac Exam: Normal S1/S2 Heart Sounds Pulmonary Exam: Clear Bilateral Breath Sounds Implantable Cardiac Device Does patient have a Pacemaker or an ICD?: No Airway Exam Known Difficult Airway: No Mallampati Class: 3 Mouth Opening: Narrow (< 3cm) Thyromental Distance: Less than 3 cm Neck Range of Motion: Full ROM Neck Circumference: Normal Teeth Condition: Normal Dentition and Removable Dentures/Plates Lower ASA Classification ASA Score: ASA 2 Emergency Case?: No NPO Status NPO Status: NPO Clears >2 hours, Solids >8 hours Anesthesia Plan Resuscitation Status: Full Code Anesthesia Technique: Spinal Anesthesia Airway Planned: Natural Airway Pain Management: Surgeon and patient request nerve block Monitors Used: Standard Monitors
[2023-11-16] MEDS: Lactated Ringers 1,000 ML 80 ML IV (09:35)
[2023-11-16] MEDS: ceFAZolin 2 GM/50 ML BAG IVPB (10:40)
--- NOTE | 2023-11-16 11:59 | W.BRIEF ---
Date of service: 11/16/23 Time of Service: 11:00 Brief Operative Note Procedure/Pre-Op Diagnoses: Operation Date: 11/16/23 10:10 Actual Procedures p Knee Total Arthroplasty, Cemented CR(Right) - Arnaldo Walker MD Pre-Op Diagnosis: Right knee DJD Post-Op Diagnosis: Right knee DJD Estimated Blood Loss Output, Estimated Blood Loss 150 Amount Specimen/Culture Specimen(s): None Culture(s): None
--- NOTE | 2023-11-16 12:21 | ROE_ITS ---
Date of service: 11/16/23 Time of Service: 11:00 Operative Note Operative Note DATE OF PROCEDURE: 11/16/23 PRE-OP DIAGNOSIS: Right Knee Osteoarthritis POST-OP DIAGNOSIS: same PROCEDURE: Right Total Knee Replacement SURGEON: Arnaldo Walker [employer] END FINDER: Honey Bill ANESTHESIA TYPE: Spinal Refer to Anesthesia Record ESTIMATED BLOOD LOSS: 150 PATHOLOGY: none sent TOURNIQUET TIME: 0 COMPLICATIONS: None Patient was transported to: PACU Patient's condition: stable Implants: 1. Depuy Attune Cementless Cruciate Retaining Femoral Component, Size 5 2. Depuy Attune Cementless Fixed Bearing Tibial Component, Size 4 3. Depuy Attune 5x8 CR/FB Poly 4. Depuy Attune Patellar Component, Size 35 Indications: I have seen Anali in clinic for symptoms of knee arthritis, confirmed with radiographic findings. She has exhausted nonoperative methods and was having significant limitations in daily function and desired better function and less pain. I discussed the technical details of a knee replacement. I explained the risks of the procedure to include, but not limited to, bleeding, infection, pain, stiffness, fracture, damage to nerves and vessels, damage to muscles and tendons, loosening, need for repeat procedure, blood clot and cardiopulmonary demise. Despite these risks, Anali elected to proceed. Findings: There was significant signs of arthritis throughout the knee, noted mostly in the medial compartment. Procedure Description: Anali was greeted in the preoperative holding area where the correct side was identified and marked. The consent was reviewed with the patient and signed. The history and physical was updated. All questions were answered. Preoperative medications were administered: Acetaminophen 1000mg, Celebrex 400mg, and Gabapentin 300mg. An adductor canal block was then administered by the anesthesia team in the PACU. Anali was taken back to the operating room. A spinal anesthestic was then administered. The patient was placed into the supine position on the operating room table. A nonsterile tourniquet was placed high onto the leg but only used for cementing. Posts were placed for positioning during the proce dure. All bony prominences were well padded. Prophylactic antibiotics in the form of Cefazolin were administered. 1g of Tranxemic Acid was given intravenously within 30 minutes of incision. The right leg was then prepped with Chloraprep and draped in a standard fashion with impervious stockinette. A second prep with Chloraprep was performed prior to application of Iodine impregnated skin protection. A timeout to confirm correct identity, side and site, procedure, allergies, anesthesia, and medical concerns was performed. With the knee in some flexion, a midline incision was made overlying the knee. Full thickness skin flaps were raised once the extensor mechanism was encountered. These were raised medially and laterally. Any bleeding was controlled with electrocautery. Once the extensor mechanism was fully exposed, a medial parapatellar arthrotomy was performed in a flexed position. All bleeding from the arthrotomy and the geniculate arteries was coagulated. A medial subperiosteal peel was performed with electrocautery to the midcoronal plane. The fat pad was removed while keeping the patellar tendon protected. The anterior distal femur synovium was removed for later visualization. The ACL and PCL were resected and the anterior horn of the lateral meniscus was transected. The knee was then flexed with the patella everted. Using a step drill, and based on preoperative templating, the femoral canal was entered. This was done with a step drill without any difficulty. The intramedullary distal femoral cut guide was inserted, set to a 5 degree valgus cut and 9mm cut thickness. The distal femoral cut guide was then held in position and pinned. With the soft tissues protected, the distal cut was performed. This was passed over a few times to ensure a planar cut. I then turned attention to the tibia. The extramedullary guide was placed onto the leg. The distal aspect was slid medial to adjust for position of center of ankle and stay in line with shaft of the tibia. Approximately 3-5 degrees of posterior slope was kept in the proximal cutting guide. The center of the guide was aligned with the PCL. The stylus was used to assess cut thickness. The medial side, most involved side, was set for a 4mm cut. This was then held in position and pinned into place with 2 additional pins and a cross pin for stability. The medial and lateral c ollateral ligaments were protected and the cut was performed. With this completed, it was assessed and noted to be of appropriate dimensions. The guide was removed. A spacer block was inserted and the knee was brought into extension. The 7mm spacer block provided full extension, without hyperextension and with stability of both the medial and lateral collateral ligaments was assessed. The pins from the femur and the tibia were then removed. The distal femur was then sized. The anterior stylus was placed onto the lateral ridge of the anterior femur. This indicated a size 5 femur. The e xternal rotation of the guide was adjusted to 5 degrees to match the epicondylar axis, perpendicular to Mariya?s line. The 4-in-1 cutting guide was the placed. The posterior medial femur cut was evaluated and appeared of good thickness. The spacer block was inserted underneath the cutting guide and stability was confirmed in 90 degrees of flexion. An laura wing was used to confirm appropriate position of the anterior cut to avoid notching. This cutting guide was ensured to be flush on the cut surface and then pinned into place with headed pins. While protecting the soft tissues, quad tendon, and collateral ligaments, the anterior and posterior cuts were performed with a saw. The central two pins were removed and the posterior and anterior chamfers were cut next. The notch-cutting guide was placed. This was pinned to lateralize the femoral component as much as possible while keeping it flush on the cut surface. This was then pinned into position. A reciprocating saw was used to make the notch cut. A rasp smoothed the cut surfaces. The medial and lateral menisci were removed. A trial femoral component was then inserted, impacted down to the cut surfaces, and the lug holes were drilled. A provisional trial tibial component was placed and the knee was brought through range of motion. The polyethylene was trialed until there was good flexion and extension with excellent stability to the medial and lateral collaterals. The patella was tracking without thumbs. A size 8mm polyethylene component provided the best range of motion and stability with less than 2mm gapping with medial and lateral stress and full extension without significant hyperextension. The tibial cut surface was fully exposed. Remaining posterior osteophytes in the posterior tibia were resected with a rongeur. The tibia was then sized as a 4. The tibia had been previously marked during trialing to correspond to the center of the tibial component to help with rotation. The trial was aligned to this willy, approximately rotated to the medial 1/3rd of the tibial tubercle. The trial was pinned into place. The tibia was prepared with a reamer and a keel punch and lug holes. The knee was then brought into extension and the patella was measured as 23mm. Using the patellar clamp and cut guide, this was resected to a flat surface with at least 13mm of thickness remaining. The size 35 patella fit the best. This was oriented and then clamped into position. The lugs were drilled. The trial components were removed. The final components were opened on the back table. The periosteal and capsular tissues, especially posteriorly, around the knee were then systematically injected with a periarticular cocktail consisting of 246mg of Ropivacaine, 0.5mg of Epinephrine, 0.08mg of Clonidine, and 30mg of Ketorolac, diluted to 100cc. On the back table, with the implants opened, the cement was mixed. One batch of high viscosity cement was prepared with vacuum assistance. After the cement was ready a small amount was placed on the cut surface of the patella and the patellar button was clamped into position and held. While the cement was hardening, the cementless knee components were placed. Starting with the tibial component, the tibia was subluxed anteriorly and the lug holes of the component were lined up. The tibia was then impacted with an impactor and mallet until the tibial component was in contact with the tibia. The final polyethylene component was inserted. Then, the femoral component was inserted. The lug holes were aligned and the component was impacted into position. The knee was irrigated with Surgiphor Betadine solution. This was allowed to sit in the knee for 3 minutes and then it was irrigated out with saline. After the cement had finally cured, approximately 15min, the clamp was removed from the patella and the knee was taken through range of motion. The patella was tracking with a no-thumbs technique. The capsule was then reapproximated with a No. 1 Vicryl at multiple locations. The capsule was finally closed with a No. 2 Stratafix, barbed suture. The second dosing of 1g TXA was started. Deep tissues were then reapproximated with 0 Vicryl and 2-0 Vicryl. The skin was closed with a running 3-0 Monocryl in a subcuticular fashion. This was reinforced with skin glue. A Mepilex silver dressing was applied along with a [id number] JOHANN wrap. A CryoCuff was applied. Anali was transferred to the hospital bed without difficulty an suffering no apparent complication. Anali has a good prognosis. Physical therapy will start today and without restrictions, weight-bearing as tolerated. Aspirin 81mg BID will be used for DVT prophylaxis.
--- NOTE | 2023-11-16 13:19 | W.ANESPOSTOP ---
Postoperative Evaluation Date, Time and Location Date Performed: 11/16/23 Time Performed: 13:19 Patient Location: Day Surgery Unit Vital Signs Most Recent Imported Vital Signs: Most Recent Vital Signs Temp Pulse Resp BP Pulse Ox 36.4 C L 60 18 125/53 L 100 11/16/23 13:03 11/16/23 13:03 11/16/23 13:03 11/16/23 13:03 11/16/23 13:03 Pain Score Most Recent Pain Score: Most Recent Pain Score Pain Level 3 11/16/23 13:03 Assessment Mental Status: Awake (Alert & Oriented to Patient Baseline) Airway and Respiratory Function: Patent airway with normal (patient baseline) respiratory exam Cardiovascular Function: Hemodynamically Stable Hydration Status: Adequately Hydrated Nausea & Vomiting: No Nausea or Vomiting Pain: Pain is tolerable per patient Peripheral Nerve Block: Patient did not receive a nerve block
[2023-11-16] MEDS: oxyCODONE 5 MG TAB PO (13:24)
--- NOTE | 2023-11-16 13:58 | PT.INIE ---
PT Notes Visit Reasons: Right knee DJD Physical Therapy Day Surgery Initial Evaluation Date: 11/16/2023 Referring Doctor: SAMMY Coleman PT Orders: PT CONSULT: S/P Ortho Surgery Precautions: WBAT on the R LE with AD. Patient Profile/Admitting Diagnosis: Anali is an 83-year-old female with degenerative joint disease of the right and is status post right total knee arthroplasty on postoperative day 0. PMHX: Medical History (Updated 11/02/23 @ 11:31 by Honey Bill) Polyp of colon TUBULAR ADENOMA Hyperlipidemia History of tobacco use stopped over 30 years ago Diverticulosis of colon without diverticulitis Cystocele, midline Surgical History (Updated 11/02/23 @ 11:31 by Honey Bill) Status post dilation and curettage Cyst of kidney, acquired Right kidney cyst excision Ruptured lumbar disc ~1989 Abdominal hysterectomy cervical dyspalsia Colonoscopy - MAC 2006 Cholecystectomy (~2001) Social History/Home Situation: Lives alone in a private home with no steps to enter. Independent with all aspects of ADLs prior to surgery. Daughter Leanne will be with patient for the first 2 days and all the other daughters and son will be good support for patient as needed. Equipment Owned/DME: [facility] Subjective: Reports no pain on the right knee at rest and with weight bearing. Initially felt very shaky and mildly wobbly on the right knee but symptoms subsided and right knee stability improved through the walk. Denied headache, chest pain, and lightheadedness throughout session. Objective: General Observation: Patient resting in bed. Daughters Audrey present in room during evaluation. Tyrell wrap to right LE. Cryo/Cuff to right knee. TEDS to left leg/foot. Mental Status: A and O x 4 Pain: None reported ROM: Right Lower Extremity: Hip flexion WFL. Hip abduction WFL. Knee flexion 10 degrees to 100 degrees. Knee extension -10 degrees. Ankle dorsiflexion WFL. Ankle plantarflexion WFL. Left Lower Extremity: Hip flexion WFL. Hip abduction WFL. Knee flexion WFL. Ankle dorsiflexion WFL. Ankle plantarflexion WFL. Strength: Right Lower Extremity: Hip flexors 4/5. Hip abductors 4/5. Knee flexors 4-/5. Knee extensors 4-/5. Ankle dorsiflexors 5/5. Ankle plantarflexors 5/5. Left Lower Extremity:Hip flexors 5/5. Hip abductors 5/5. Knee flexors 5/5. Knee extensors 5/5. Ankle dorsiflexors 5/5. Ankle plantarflexors 5/5. Sensation: Intact as to pain and light pressure in BLE Bed Mobility/Transfers: Minimal cueing provided for use of B hands as needed for support, movement sequence, Ad management, and and posture to reduce fall risk and minimize pain report Supine to sit standby assist Sit to stand contact-guard assist Stand to sit contact-guard assist Bed to chair contact-guard assist Gait: Facilitated safe and correct performance of level surface ambulation covering a distance of 150 feet requiring contact-guard assist using front-wheeled walker and minimal verbal cueing for limb advancement to reduce mild right knee buckling at onset of walking activity, walker management, posture, and overall safety. No loss of balance. No shortness of breath. Balance: Static Sitting: Normal Dynamic Sitting: Good Static Standing: Fair Dynamic Standing: Fair Special Tests: Mobility Limitations Standardized Measure [facility] 6 clicks Basic Mobility Inpatient Short Form: Raw Score: 20 CMS Score: 36% deficit Informed Consent/Education: Patient instructed in purpose of PT consult. Packet containing TKA exercise protocol has been given to patient. Education and training on initial set of exercises that can be done at home have been completed with patient. Trained patient with correct performance of exercises below to maximize motor control, joint flexibility, soft tissue extensibility of the R knee musculature: Access Code: [email or web address] URL: [email or web address] Date: 11/16/2023 Prepared by: Vijaya Cheung Exercises - Supine Quad Set - 1 x daily - 7 x weekly - 1 sets - 10 reps - 5 hold - Supine Heel Slide - 1 x daily - 7 x weekly - 1 sets - 10 reps - 5 hold - Supine Ankle Pumps - 1 x daily - 7 x weekly - 1 sets - 10 reps - 5 hold - Small Range Straight Leg Raise - 1 x daily - 7 x weekly - 1 sets - 10 reps - 5 hold - Seated March - 1 x daily - 7 x weekly - 1 sets - 10 reps - 5 hold Assessment: Patient requires the use of a front-wheeled walker for all mobility ADL performance to maximize independence and reduce fall risk. Initial shakiness and mild instability in right knee resolved towards the end of walk. DAughter Leanne will be supporting patient for the firt 2 days at home. Patient presents with clinical signs and symptoms consistent with current/admitting diagnoses that have resulted to mobility limitations, gait instability, generalized weakness, and impairment of motor control as demonstrated by the following impairment level findings: 1. Decreased strength to R knee major muscle groups 2. Impaired standing balance 3. Limitation of joint range of motion in R knee Impairments are contributing to the following functional limitations: 1. Inability to safely ambulate without assistive device 2. Increase completion time for mobility ADL performance 3. Increased fall risk Patient is assessed as a 22826 moderate complexity based on the following: History: [id number] with impairment level findings, functional limitations, and past medical history as indicated above Examination: Demonstrable impairment in strength, balance, and mobility level with underlying impairments and functional limitations as documented above Presentation: Evolving Decision Makin moderate complexity Goals: N/A. PT evaluation and 1-2 treatment sessions only for functional mobility training using recommended AD and for HEP instruction. Plan of Care/Treatment Plan: N/A. PT evaluation and 1-2 treatment session only for functional mobility training using recommended AD and for HEP instruction. DISCHARGE RECOMMENDATIONS: Home when medically cleared by orthopedic surgeon. Recommend outpatient PT services in order to optimize functional mobility outcomes and facilitate return to independent community ambulation without an assistive device. TREATMENT CODE/TIME: 29037 x 20 minutes for 1 unit, 55628 x 25 minutes for 2 units beginning at 13:58 PM. Thank you for the opportunity to participate in the care of this patient. Please sign an return this page within 30 days if you agree with the above POC. Thank you! Physician Signature Date [facility] Vijaya Cheung PT, DPT, CLT [facility] [place], [place]
--- NOTE | 2023-11-21 10:37 | W.ANESNERVE ---
Nerve Block Single Injection Procedure Date and Time Date Performed: 11/16/23 Procedure Start: 10:05 Location Where Procedure Performed Procedure Location: Day Surgery Unit Reason Performed: Postoperative Analgesia Requesting Provider: Arnaldo Walker Timeout Performed Timeout Performed: Yes Monitoring Used ECG, Blood Pressure, SpO2 and See EMR for corresponding vital signs Sterility Sterility: Hand Hygiene, Surgical Cap, Surgical Mask, Sterile Gloves and Chlorhexidine Sedation Given During Procedure Sedation Given (Indicate Dose Given): No Sedation given Patient Mental Status Patient Mental Status: Awake Nerve Block 1st Nerve Block: Laterality: Right Block Type: Adductor Canal Ultrasound Image Saved?: Yes Needle / Catheter Used: 100mm SonoPlex II Local Anesthetic Bolus (Indicate Dose Given): Lidocaine used for local infiltration of skin, Injected in 3-5ml increments after negative blood aspiration and Bupivacaine 0.25% Dose:: 20ml Additives (Indicate Dose Given): None Ultrasound: Sterile probe cover and gel used Nerve Stimulator: Not Used Paresthesia: None Procedure Tolerated: No Complications and Patient tolerated well Procedure Outcome: Successful Performed By: Ed Nielsen
== END 2023-11-16 16:01 | disposition home or self-care (01) ==
PROVIDERS: PCP Physician Assistant; Visit Provider Student in an Organized Health Care Education/Training Program
PROC: (CPT 27447; principal; 2023-11-16 10:00)
DX: M17.11 Unilateral primary osteoarthritis, right knee (principal); G47.33 Obstructive sleep apnea (adult) (pediatric); F41.9 Anxiety disorder, unspecified; F32.A Depression, unspecified; R32 Unspecified urinary incontinence; G25.81 Restless legs syndrome
CPT/HCPCS: 27447; C1776; 76942; 97162; 97530; J0690; J1100; J2001; J2371; J2405

== ENCOUNTER 2023-11-30 11:19 | Outpatient (CLI) | payer OTHER, SELFPAY ==
--- NOTE | 2023-11-30 11:00 | DI.RAD_ITS ---
Exam(s) XR STANDING ALIGNMENT XR KNEE RT 1V EXAM: XR STANDING ALIGNMENT and XR knee RT 1 V CLINICAL HISTORY: 1ST POST OP R TKA. TECHNIQUE: 2D digital imaging was performed. Five images were obtained. COMPARISON: CR XR STANDING ALIGNMENT from 10/05/2023 FINDINGS: BONES: The hips are well maintained. There are stable postsurgical changes of a right total knee rep lacement. The orthopedic hardware appears in good position. No suspicious lucencies are seen around the orthopedic hardware. There is mild narrowing of the medial femoral tibial joint space of the le ft knee. The ankles are well maintained.There is no significant leg length discrepancy. SOFT TISSUE: Normal. IMPRESSION: 1. Stable appearance of the right total knee replacement. 2. Mild narrowing of the medial left femoral tibial joint space. DATA REPOSITORY: RADIATION DOSE DELIVERED:
== END 2023-11-30 11:20 | disposition home or self-care (01) ==
LOC: DIORS 11:19
PROVIDERS: PCP Physician Assistant; Referring Provider Physician Assistant; Visit Provider Student in an Organized Health Care Education/Training Program
DX: Z96.651 Presence of right artificial knee joint (principal); Z47.1 Aftercare following joint replacement surgery
CPT/HCPCS: 73560; 77073

== ENCOUNTER → 2023-12-28 09:51 | Outpatient (BNVA) | payer OTHER, SELFPAY | PROVIDERS: PCP Physician Assistant | DX: Z47.1 Aftercare following joint replacement surgery (principal); Z96.651 Presence of right artificial knee joint ==

== ENCOUNTER 2024-02-07 11:54 | Outpatient (CLI) | payer OTHER, SELFPAY ==
--- NOTE | 2024-02-07 11:30 | DI.RAD_ITS ---
Exam(s) XR SHOULDER RT COMPLETE 2+V EXAM: XR SHOULDER RT COMPLETE 2+V CLINICAL HISTORY: right shoulder pain. TECHNIQUE: 2D digital imaging was performed. Five views. COMPARISON: CR XR SHOULDER RT COMPLETE 2+V from 02/09/2022 FINDINGS: BONES: No acute fracture is present. No bony destructive lesion is seen. Mild spurring at greater an d lesser tuberosities. JOINTS: No dislocation present. Glenohumeral joint space is maintained. Mild periarticular spurring . AC joint is unremarkable. SOFT TISSUE: Normal. IMPRESSION: Mild degenerative changes. DATA REPOSITORY: RADIATION DOSE DELIVERED:
== END 2024-02-07 11:55 | disposition home or self-care (01) ==
LOC: DIORS 11:55
PROVIDERS: PCP Physician Assistant; Visit Provider Student in an Organized Health Care Education/Training Program
DX: Z47.1 Aftercare following joint replacement surgery; M75.81 Other shoulder lesions, right shoulder; Z96.651 Presence of right artificial knee joint
CPT/HCPCS: 20610; 99213; 73030; J1030

== ENCOUNTER → 2024-04-24 10:45 | Outpatient (BNVA) | payer OTHER, SELFPAY | PROVIDERS: PCP Physician Assistant; Referring Provider Physician Assistant; Visit Provider Student in an Organized Health Care Education/Training Program | DX: M75.21 Bicipital tendinitis, right shoulder (principal); M75.81 Other shoulder lesions, right shoulder | CPT/HCPCS: 99213 ==

== ENCOUNTER 2024-04-24 12:04 | Outpatient (REF) | payer OTHER, SELFPAY | END 2024-04-24 12:05 | disposition home or self-care (01) | LOC: LBN 12:04 | PROVIDERS: PCP Physician Assistant; Visit Provider Physician Assistant | DX: L98.9 Disorder of the skin and subcutaneous tissue, unspecified (principal) | CPT/HCPCS: 87070; 87205 ==

== ENCOUNTER 2024-05-24 16:22 | Outpatient (REF) | payer OTHER, SELFPAY ==
[2024-05-24 17:31] LABS: Abs Immature Grans 0.02 10^3/uL (0.0-0.06); Absolute Basophil Count 0.04 10^3/uL (0.0-0.2); Absolute Eosinophil Count 0.28 10^3/uL (0.0-0.7); Absolute Lymphocyte Count 2.03 10^3/uL (1.2-3.4); Absolute Monocyte Count 0.64 10^3/uL (0.1-0.8); Absolute Neutrophil Count 4.17 10^3/uL (1.2-6.7); Basophils % 0.6 %; Eosinophils % 3.9 %; HCT 39.5 % (36.0-46.0); Immature Grans % 0.3 %; Lymphocytes % 28.3 %; MCH 30.8 pg (27.0-33.0); MCHC 32.9 % (32.0-36.0); MCV 94 fL (80-95); MPV 9.8 fL (8.0-11.0); Monocytes % 8.9 %; Platelet Count 287 10^3/uL (130-400); RBC 4.22 10^6/uL (3.93-5.22); RDW 13.7 % (11.7-14.6); RDW-SD 46.5 fL; WBC 7.18 10^3/uL (4.4-10.8)
[2024-05-24 17:34] LABS: ESR 28 mm/hr (0-30)
[2024-05-24 17:42] LABS: ALT 27 U/L (14-59); AST 24 U/L (15-37); Albumin 3.8 g/dL (3.4-5.0); Alkaline Phosphatase 74 U/L (46-116); Anion Gap 6.6 mmol/L (3-11); BUN 13 mg/dL (7-18); Bilirubin, Total 0.57 mg/dL (0.2-1.0); C-Reactive Protein 1.09 mg/dL (<or=0.5); CO2 29.4 mmol/L (21.0-32.0); CREATININE 0.8 mg/dL (0.55-1.02); Calcium 9.1 mg/dL (8.5-10.1); Chloride 104 mmol/L (98-107); Estimated GFR 72.61 (mL/min/1.73m2); Glucose 92 mg/dL (74-106); Potassium 4.2 mmol/L (3.5-5.1); Sodium 140 mmol/L (136-145); Total Protein 6.9 g/dL (6.4-8.2)
== END 2024-05-24 16:23 | disposition home or self-care (01) ==
LOC: LBN 16:22
PROVIDERS: PCP Physician Assistant; Visit Provider Nurse Practitioner Family
DX: L98.9 Disorder of the skin and subcutaneous tissue, unspecified (principal); T50.905A Adverse effect of unspecified drugs, medicaments and biological substances, initial encounter; L51.3 Stevens-Johnson syndrome-toxic epidermal necrolysis overlap syndrome; L25.9 Unspecified contact dermatitis, unspecified cause
CPT/HCPCS: 80053; 85652; 87077; 85025; 86140; 87070; 87186; 87205

== ENCOUNTER 2024-05-26 13:32 | Outpatient (REF) | payer OTHER, SELFPAY ==
[2024-05-26 19:00] LABS: Calculated LDL 103 mg/dL (<100); Cholesterol 183 mg/dL (<200); HDL Cholesterol 65 mg/dL (40-60); Triglyceride 75 mg/dL (<150)
== END 2024-05-26 13:33 | disposition home or self-care (01) ==
LOC: NCHCN 13:32
PROVIDERS: PCP Physician Assistant; Visit Provider Physician Assistant
DX: E78.5 Hyperlipidemia, unspecified (principal)
CPT/HCPCS: 80061

== ENCOUNTER → 2024-07-14 10:42 | Outpatient (BNVA) | payer OTHER, SELFPAY | PROVIDERS: PCP Physician Assistant; Visit Provider Student in an Organized Health Care Education/Training Program | DX: M75.81 Other shoulder lesions, right shoulder (principal); M75.21 Bicipital tendinitis, right shoulder | CPT/HCPCS: 99213 ==

== ENCOUNTER 2024-12-15 15:52 | Outpatient (CLI) | payer MEDICARE, SELFPAY ==
--- NOTE | 2024-12-15 14:15 | DI.RAD_ITS ---
Exam(s) XR KNEE RT 2V AP,LAT EXAM: XR KNEE RT 2V AP,LAT CLINICAL HISTORY: ANNUAL F/U R TKA. TECHNIQUE: 2D digital imaging was performed. COMPARISON: CR XR KNEE RT 1V from 11/30/2023 FINDINGS: 3 views Stable position alignment of the components of the deep prosthesis. No fracture or loosening evident . No evidence of osteomyelitis. IMPRESSION: Stable satisfactory appearance. DATA REPOSITORY: RADIATION DOSE DELIVERED:
== END 2024-12-15 15:53 | disposition home or self-care (01) ==
LOC: DIORS 15:52
PROVIDERS: PCP Physician Assistant; Visit Provider Student in an Organized Health Care Education/Training Program
DX: Z47.1 Aftercare following joint replacement surgery (principal); Z96.651 Presence of right artificial knee joint
CPT/HCPCS: 99213; 73560

== ENCOUNTER 2025-05-26 18:08 | Outpatient (REF) | payer MEDICARE, SELFPAY ==
[2025-05-26 20:15] LABS: ALT 28 U/L (14-59); AST 30 U/L (15-37); Albumin 3.7 g/dL (3.4-5.0); Alkaline Phosphatase 52 U/L (46-116); Anion Gap 6.5 mmol/L (3-11); BUN 24 mg/dL (7-18); Bilirubin, Total 0.4 mg/dL (0.2-1.0); CO2 27.5 mmol/L (21.0-32.0); Calcium 9.1 mg/dL (8.5-10.1); Calculated LDL 97 mg/dL (<100); Chloride 105 mmol/L (98-107); Cholesterol 178 mg/dL (<200); Estimated GFR 72.16 (mL/min/1.73m2); Glucose 134 mg/dL (74-106); HDL Cholesterol 51 mg/dL (>or=50); Potassium 3.7 mmol/L (3.5-5.1); Sodium 139 mmol/L (136-145); Total Protein 7.1 g/dL (6.4-8.2); Triglyceride 153 mg/dL (<150)
== END 2025-05-26 18:09 | disposition home or self-care (01) ==
LOC: NCHCN 18:08
PROVIDERS: PCP Physician Assistant; Visit Provider Physician Assistant
DX: E78.5 Hyperlipidemia, unspecified (principal)
CPT/HCPCS: 80053; 80061